=== PATIENT | female | born 1975 | race Caucasian/White ===

== ENCOUNTER 2023-07-04 09:59 | Outpatient (CLI) | payer OTHER, SELFPAY ==
--- NOTE | 2023-07-04 12:26 | W.ANESCHARGE ---
Anesthesia Charges Start Date/Time Anesthesia Start Date: 07/04/23 Anesthesia Start Time: 12:00 Stop Date/Time Anesthesia Stop Date: 07/04/23 Anesthesia Stop Time: 12:25
--- NOTE | 2023-07-04 12:59 | W.ANESCHARGE ---
Anesthesia Charges Start Date/Time Anesthesia Start Date: 07/04/23 Anesthesia Start Time: 12:00 Stop Date/Time Anesthesia Stop Date: 07/04/23 Anesthesia Stop Time: 12:25
== END 2023-07-04 10:00 | disposition home or self-care (01) ==
LOC: OP CLINIC 10:02
PROVIDERS: PCP Family Medicine; Visit Provider Internal Medicine Gastroenterology
DX: Z12.11 Encounter for screening for malignant neoplasm of colon (principal); K62.1 Rectal polyp
CPT/HCPCS: 00811; 45385; 88305; J2704